=== PATIENT | male | born 1930 | race Caucasian/White ===

== ENCOUNTER 2017-09-19 12:41 | Emergency (ER) | payer MEDICARE ==
[~2017-09-19] VITALS: Ht 170.2 cm; Wt 70.0 kg
[~2017-09-19 12:41] MED LIST: LOVA1TAB47 PO; TAB-TAB PO
[2017-09-19 12:42] VITALS: BP 153/85; PULSE 63; RESP 14; TEMP 98.4; O2SAT 96
[2017-09-19 15:09] LABS: BILIRUBIN, URINE NEG (NEG); BLOOD, URINE NEG (NEG); GLUCOSE,URINE NEG (NEG); KETONE, URINE NEG (NEG); MUCUS URINE FEW /lpf (OCC); NITRITE,URINE NEG (NEG); PH, URINE 5.5 (5.0-8.5); SQUAMOUS EPITHELIAL CELL URINE 2 /hpf (0-5); URINE COLOR YELLOW (YELLW/STRAW); URINE LEUKOCYTE ESTERASE MOD (NEG)
[2017-09-19] MEDS ORDERED: PRED20 PO (15:11)
--- NOTE | 2017-09-19 15:18 | PD ---
HPI Chief Complaint: Pain: Acute or Chronic Time Seen by Provider: 15:00 Travel History International Travel<30 days: No Contact w/Intl Traveler<30days: No Traveled to known affect area: No History of Present Illness HPI 87-year-old male presents the emergency department with his with 4 day history of intermittent right groin pain and swelling. Patient denies fever, chills, or changes in bowel or bladder. Patient states it was worse today when walking which is why he came in to get evaluated. He is normally seen in the [facility]. His doctors are out of [facility]. There is no rash or other symptoms currently. Earlier he states his pain was excruciating but currently his pain is nil. He has no known drug allergies. PFSH Past Medical History AAA: Yes Diminished Hearing: No GERD: Yes Tetanus Vaccination: > 5 Years Influenza Vaccination: Yes Past Surgical History Abdominal Aneurysm Repair: Yes (REPAIR 2009) Social History Alcohol Use: Yes (occ wine) Tobacco Use: No Substance Use: No Allergies-Medications (Allergen,Severity, Reaction): Coded Allergies: No Known Allergies (Verified Allergy, Unknown, 09/19/17) Reported Meds & Prescriptions Reported Meds & Active Scripts Active Reported Prednisone 20 Mg Tab 20 Mg PO DAILY Review of Systems Except as stated in HPI: all other systems reviewed are Neg General / Constitutional: No: Fever Eyes: No: Visual changes HENT: No: Headaches Cardiovascular: No: Chest Pain or Discomfort Respiratory: No: Shortness of Breath Gastrointestinal: Positive: Abdominal Pain, No: Nausea, Vomiting, Diarrhea Genitourinary: No: Dysuria Musculoskeletal: No: Pain Skin: No Rash Neurologic: No: Weakness Psychiatric: No: Depression Endocrine: No: Polydipsia Hematologic/Lymphatic: No: Easy Bruising Physical Exam Narrative GENERAL: Patient is in no acute distress. SKIN: Warm and dry. Normal color. Normal turgor. No rash. HEAD: Atraumatic. Normocephalic. EYES: Pupils equal and round. No scleral icterus. No injection or drainage. ENT: No nasal bleeding or discharge. Mucous membranes pink and moist. Pharynx is clear. Airways patent NECK: Trachea midline. Supple and nontender. CARDIOVASCULAR: Regular rate and rhythm. RESPIRATORY: No accessory muscle use. Clear to auscultation. Breath sounds equal bilaterally. GASTROINTESTINAL: Abdomen soft, non-tender, nondistended. Hepatic and splenic margins not palpable. Patient has palpable reducible right inguinal hernia which is nontender at this time. MUSCULOSKELETAL: Extremities without clubbing, cyanosis, or edema. No obvious deformities. NEUROLOGICAL: Awake and alert. No obvious cranial nerve deficits. Motor grossly within normal limits. Five out of 5 muscle strength in the arms and legs. Normal speech. PSYCHIATRIC: Appropriate mood and affect; insight and judgment normal. Data Data Last Documented VS Vital Signs Date Time Temp Pulse Resp B/P (MAP) Pulse Ox O2 Delivery O2 Flow Rate FiO2 09/19/17 12:42 98.4 63 14 153/85 (107) 96 Orders Orders Urinalysis - C+S If Indicated (09/19/17 12:57) Labs Laboratory Tests Test 09/19/17 14:50 Urine Color YELLOW Urine Turbidity CLEAR Urine pH 5.5 Urine Specific Lyles 1.022 Urine Protein NEG mg/dL Urine Glucose (UA) NEG mg/dL Urine Ketones NEG mg/dL Urine Occult Blood NEG Urine Nitrite NEG Urine Bilirubin NEG Urine Urobilinogen LESS THAN 2.0 MG/DL Urine Leukocyte Esterase MOD Urine RBC 2 /hpf Urine WBC 8 /hpf Urine Squamous Epithelial Cells 2 /hpf Urine Mucus FEW /lpf Microscopic Urinalysis Comment CULT NOT INDICATED MDM Medical Decision Making Medical Screen Exam Complete: Yes Emergency Medical Condition: Yes Differential Diagnosis Abdominal pain. UTI. Shingles. Inguinal hernia. Narrative Course Patient is medically stable at time of exam. Urinalysis is sent to the lab. Urine shows no signs of infection. Patient is felt to have an inguinal hernia which requires follow-up with his primary care physician for possible surgical referral. Discussed with the patient that he needs to relax and do no heavy lifting, and if his pain worsens or does not improve with rest and laying flat he should be seen immediately. Diagnosis Primary Impression: Inguinal hernia of right side without obstruction or gangrene Referrals: General Surgeon Primary Care Physician Patient Instructions: General Instructions, Inguinal Hernia (ED) Additional Instructions: Urine shows no signs of infection. Patient is felt to have an inguinal hernia which requires follow-up with his primary care physician for possible surgical referral. Discussed with the patient that he needs to relax and do no heavy lifting, and if his pain worsens or does not improve with rest and laying flat he should be seen immediately. Med/Other Pt SpecificInfo: No Change to Meds Disposition: 01 DISCHARGE HOME Condition: Stable Sohail Nova Sep 19, 2017 15:18
[2017-09-19 15:56] VITALS: BP 145/85
== END 2017-09-19 16:58 | disposition home or self-care (01) ==
LOC: NEPD 12:41
DX: K40.90 Unilateral inguinal hernia, without obstruction or gangrene, not specified as recurrent (principal); K21.9 Gastro-esophageal reflux disease without esophagitis; Z79.899 Other long term (current) drug therapy
CPT/HCPCS: 81001; 99283